=== PATIENT | female | born 1995 | race African-American/Black ===

== ENCOUNTER 2019-09-11 11:35 | Emergency (ER) | payer OTHER ==
[~2019-09-11] VITALS: Ht 152.4 cm; Wt 59.0 kg
--- NOTE | 2019-09-11 11:37 | NUR ---
PT BIBA TO BED 07.
[2019-09-11 11:40] VITALS: BP 131/62
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
--- NOTE | 2019-09-11 11:46 | NUR ---
Patient being evaluated by DR. HOWARD at bedside.
[2019-09-11] MEDS ORDERED: KETOROLAC 60 MG/2 ML VIAL IM ONE (12:05)
--- NOTE | 2019-09-11 12:10 | NUR ---
PATIENT IS TAKEN TO X-RAY.
[2019-09-11] MEDS ORDERED: KETOROLAC 30 MG/ML VIAL IVP ONE (12:50)
[2019-09-11] MEDS ORDERED: LIDOCAINE 2% 1000 MG/50 ML VIAL INJ ONE (13:10)
--- NOTE | 2019-09-11 13:18 | NUR ---
Pt ambulated to restroom with family assistance.
[2019-09-11] MEDS ORDERED: KETOROLAC 15 MG/ML VIAL IVP ONE (13:45)
--- NOTE | 2019-09-11 13:48 | NUR ---
Pt going to CT via wheelchair
[2019-09-11] MEDS ORDERED: CLINDAMYCIN 900 MG in DEXTROSE 5% 100 ML IV ONE (14:25)
[2019-09-11] MEDS ORDERED: CLINDAMYCIN 900 MG/6 ML VIAL IV ONE (14:31)
--- NOTE | 2019-09-11 14:35 | NUR ---
PATIENT IS BACK FROM CT
--- NOTE | 2019-09-11 15:00 | NUR ---
PATIENT IS RESTING IN BED, NO S/S OF DITRESS, FAMILY MEMBERS AT BEDSIDE.
--- NOTE | 2019-09-11 16:00 | NUR ---
PATIENT WENT TO BATHROOM AND BLOWED HER NOSE WITH NOSE BLEEDING, SMALL AMOUNT OF BLEEDING NOTED, CONTROLED AT THIS TIME. DR. HOWARD MADE AWARE, WILL CONTINUE TO MONITOR.
[2019-09-11 16:47] VITALS: BP 124/68
--- NOTE | 2019-09-11 16:47 | NUR ---
Patient discharged to home. Written and verbal after care instructions given and explained. Rx of motrin, TRAMADOL, CLINDAMYCIN given. Patient educated on indication of medication including possible reaction and side effects. All questions addressed prior to discharge. IV REMOVED, ID band removed. Patient advised to follow up with PMD.
== END 2019-09-11 16:47 | disposition home or self-care (01) ==
LOC: MED 11:35
DX: S02.2XXA Fracture of nasal bones, initial encounter for closed fracture (principal); S01.112A Laceration without foreign body of left eyelid and periocular area, initial encounter; S01.21XA Laceration without foreign body of nose, initial encounter; M25.531 Pain in right wrist; M25.551 Pain in right hip; M79.645 Pain in left finger(s); V89.2XXA Person injured in unspecified motor-vehicle accident, traffic, initial encounter; Y93.89 Activity, other specified; Y92.410 Unspecified street and highway as the place of occurrence of the external cause; Y99.8 Other external cause status
CPT/HCPCS: 12014; 70486; 72040; 72170; 73110; 73130; 81025; 96365; 96375; 96376; 99284; J1885; J2001; J3490; 12013